=== PATIENT | female | born 1965 | race Caucasian/White ===

== ENCOUNTER 2022-02-27 13:39 | Outpatient (CLI) | payer BC, SELFPAY ==
[2022-02-27 11:39] LABS: Albumin* 4.6 g/dL (3.3-5.0)
[2022-02-27 11:40] LABS: Chloride* 102 mmol/L (96-114); Potassium* 5.6 mmol/L (3.6-5.1); Sodium* 139 mmol/L (135-149)
[2022-02-27 11:42] LABS: Aspartate Amino Transferase* 55 U/L (12-35); Bilirubin Total* 0.6 mg/dL (0.1-1.5); Carbon Dioxide* 29 mmol/L (20-32); Cholesterol* 211 mg/dL (90-199); Creatinine* 0.6 mg/dL (0.5-1.5); Estimated Glomerular Filt Rate 105 ml/min
[2022-02-27 11:43] LABS: Alanine Aminotransferase* 46 U/L (4-35); Alkaline Phosphatase* 102 U/L (40-150); Blood Urea Nitrogen* 14 mg/dL (7-30); Calcium* 9.4 mg/dL (8.4-10.6); Glucose* 95 mg/dL (60-115); Triglycerides* 154 mg/dL (40-149)
[2022-02-27 11:56] LABS: HDL Cholesterol* 123 mg/dL (>=50); LDL Cholesterol Calculated 57 mg/dL (<100)
== END 2022-02-27 13:40 | disposition home or self-care (01) ==
PROVIDERS: PCP Internal Medicine; Visit Provider Internal Medicine
DX: E78.1 Pure hyperglyceridemia (principal)
CPT/HCPCS: 80053; 80061

== ENCOUNTER 2022-08-29 08:15 | Outpatient (CLI) | payer BC, SELFPAY | END 2022-08-29 08:16 | disposition home or self-care (01) | LOC: NFLDREF 09-06 11:52 | PROVIDERS: PCP Internal Medicine; Referring Provider Internal Medicine; Visit Provider Internal Medicine | DX: E78.1 Pure hyperglyceridemia (principal); F10.20 Alcohol dependence, uncomplicated; Z13.9 Encounter for screening, unspecified; W19.XXXA Unspecified fall, initial encounter | CPT/HCPCS: 80053 ==

== ENCOUNTER 2023-01-11 12:53 | Outpatient (RCR) | payer BC, SELFPAY | END 2023-02-25 10:04 | disposition home or self-care (01) | PROVIDERS: PCP Internal Medicine; Visit Provider Orthopaedic Surgery | DX: M75.00 Adhesive capsulitis of unspecified shoulder (principal); Z51.89 Encounter for other specified aftercare | CPT/HCPCS: 97110; 97161 ==

== ENCOUNTER 2023-01-22 09:02 | Outpatient (CLI) | payer BC, SELFPAY ==
--- NOTE | 2023-01-22 09:15 | CRLHL7_ITS ---
For Patients: As a result of the Century Cures Act, medical imaging exams and procedure reports are released immediately into your electronic medical record. You may view this report before your referring provider. If you have questions, please contact your health care provider. BILATERAL SCREENING MAMMOGRAM WITH COMPUTER-AIDED DETECTION AND TOMOSYNTHESIS TECHNIQUE: CC and MLO views were obtained. These mammographic images have been obtained using full-field digital technique. These mammographic images were interpreted with the benefit of computer-aided detection. Breast tomosynthesis was used in this interpretation. COMPARISON FILM: 05/05/20, 08/27/18, 08/20/16. FINDINGS: The breasts are heterogeneously dense, which may obscure small masses. IMPRESSION: There is no radiographic evidence for malignancy. ASSESSMENT: BI-RADS Category 1: Negative RECOMMENDATION: Routine screening mammogram in 1 year. A lay language report of this examination will be provided to the patient. LALITO WALTON M.D. Diagnostic Radiologist [email or web address] Transcribed: 01/22/2023, 6:[address]/Dictated by: Lalito Walton MD @ 01/22/2023 12:59:00 PM (Electronically Signed)
== END 2023-01-22 09:03 | disposition home or self-care (01) ==
PROVIDERS: PCP Internal Medicine; Visit Provider Internal Medicine
DX: Z12.31 Encounter for screening mammogram for malignant neoplasm of breast (principal); R92.2 Inconclusive mammogram
CPT/HCPCS: 77063; 77067

== ENCOUNTER 2024-06-02 08:32 | Outpatient (CLI) | payer OTHER, SELFPAY ==
--- OUTSIDE RECORDS SUMMARY | 2024-06-05 04:47 | XMS_ITS | Clinical Summary ---
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 0 02/18/2015 Active valACYclovir (VALTREX) 500 mg tablet 0 03/28/2015 Active clobetasol 0.05% (TEMOVATE 0.05% OINTMENT) 0.05 % ointmentIndications :Allergic contact dermatitis due to drugs in contact with skin Mix in equal parts with mupirocin and apply 3x per day to perirectal area for one week, about 1 gm. 30 g 1 04/16/2016 Active mupirocin 2% topical (BACTROBAN OINTMENT) ointmentIndications :Allergic contact dermatitis due to drugs in contact with skin Apply topically to affected area(s) 3 times daily. Mix in equal parts with clobetasol and apply 3x per day for 7 days. 30 g 1 04/16/2016 Active albuterol HFA 90 mcg/actuation inhalerIndications: Cough Inhale 1-2 Puffs by mouth every 4 hours if needed. 1 Inhaler 2 09/24/2016 Active benzonatate (TESSALON PERLES) 100 mg capsuleIndications: Cough Take 1 capsule by mouth 3 times daily if needed for Cough. 30 capsule 2 09/27/2016 Active fluticasone (50 mcg per actuation) nasal solution (FLONASE)Indication s:Non-seasonal allergic rhinitis due to pollen inhale 1 spray into both nostrils by intranasal route 2 times daily. 3 Bottle 1 10/03/2016 Active venlafaxine (EFFEXOR) 75 mg tablet Take 1 tablet by mouth every morning. 0 12/04/2016 Active mupirocin 2% topical (BACTROBAN OINTMENT) ointmentIndications :Impetigo Apply topically to affected area(s) 3 times daily. 30 g 1 12/04/2016 Active ranitidine (ZANTAC) 150 mg tabletIndications:G astroesophageal reflux disease without esophagitis Take 1 tablet by mouth 2 times daily. 180 tablet 2 05/01/2017 Active Active Problems Problem Noted Date Diagnosed Date Colon polyp 10/30/2010 Overview (10/30/2010): Colonoscopy 09/2010 polyp repeat in [address] scan 10/27/2010 Metatarsalgia 10/14/2008 Rosacea Resolved Problems Problem Noted Date Diagnosed Date Resolved Date Coronary atherosclerosis of unspecified type of vessel, council or graft 08/04/2007 Female stress incontinence 0 08/04/2007 Immunizations Name Administration Dates Next Due AMB Influenza, IIV3 (Age >=3 years)(Flu Clinic Only) 05/02/2010,04/04/2009 Influenza, IIV3 (Age >=3 years) 05/05/2013,04/06,04/09/2006 Influenza, IIV4 03/16/2014 Td (Age >=7 Years) 06/09/1999 Tdap 10/27/2007 Family History Medical History Relation Name Comments Cancer-colon Father age 65 Diabetes Father type II, in his 60s Heart Disease Father IA--age 30s; C ABG at 65 Other Maternal Grandfather IA Cancer-breast Maternal Grandmother unknow n age Other Maternal Grandmother emphyse ma Alcohol/Drug Mother Other Mother copd Cancer-breast Paternal Aunt unknown age Relation Name Status Comments Father Alive Maternal Grandfather Maternal Grandmother Mother (Age 64) Pneumonia COPD Paternal Aunt Social History Tobacco Use Types Packs/Day Years Used Date Smoking Tobacco: Every Day Cigarettes Smokeless Tobacco: Never Tobacco Cessation:Ready to Q uit: No; Counseling Given: Yes Alcohol Use Standard Drinks/Week Comments Yes 10 (1 standard drink = 0.6 oz pu re alcohol) occasional Sex and Gender Information Value Date Recorded Sex Assigned at Not on file Gender Identity Not on file Sexual Orientation Not on file Obstetrics History Last Filed Vital Signs Vital Sign Reading Time Taken Comments Blood Pressure 131/90 12/04/2016 11:46 AM CDT Pulse 91 12/04/2016 11:46 AM CDT Temperature 36.8 C (98.2 F) 09/24/2016 8:21 AM CDT Respiratory Rate 20 01/31/2009 11:07 AM CDT Oxygen Saturation 98% 12/04/2016 11:46 AM CDT Inhaled Oxygen Concentration - - Weight 70.8 kg (156 lb) 12/04/2016 11:46 AM CDT Height 166.4 cm (5' 5.51) 03/21/2016 7:25 AM CD T Body Mass Index 25.56 03/21/2016 7:25 AM CDT Plan of Treatment Health Maintenance Due Date Last Done Comments HIV for age 15-65 1980 Hepatitis C screening for age 18-79 1983 Mammogram for age 45-75 2010 12/03/19 09, 11/26/2007, 10/23/2006 Lipids for age 45-75 07/26/2011 07/26/2006 Zoster (shingles) series for age 50+ (1 of 2) 2015 BMI (ht and wt on same day) for age 18+ 03/21/2017 03/21/2016 Depression screening for age 12+ 03/21/2017 03/21/2016 Tetanus booster 10/26/2017 10/27/2007, 06/09/1999 Colonoscopy through age 75 10/27/2020 10/27/2010, COVID-19 vaccine series (2023- season) 2024 Influenza for age 50-64 03/01/2024 03/16/20 14, 05/05/2013, 05/02/2010, Additional history exists Tdap Completed 10/27/2007 Pneumococcal series for age 6-64 Aged Out No longer eligible based on patient's age to complete this topic Procedures Procedure Name Priority Date/Time Associated Diagnosis Comments XR MAMMO BILAT SCREEN FFDM ([place]) Routine 12/02/2008 11:32 AM CDT Other Screening Mammogram LIPID PANEL Timed 07/26/2006 4:36 PM TRANSPORT MANAGER from Last 3 Months or Most Recently Relevant to Health Maintenance Results * XR MAMMO BILAT SCREEN FFDM (12/02/2008 11:32 AM CDT) MAMMOGRAM ACR 2 Benign Finding Anatomical Region Laterality Modality BREASTS, Breast Left, Breast Right Bilateral Mammography 12/02/2008 11:3 2 AM CDT Narrative 12/07/2008 10:33 AM CDT Benign findings noted on mammogram. For complete description of the mammographic examination, please reference scanned document within [facility]. We are mailing a results letter to the patient. ACR 2 Benign Finding Procedure Note Sebastian Gonzalez - 12/08/2008 Benign findings noted on mammogram. For complete description of themammographic examination, please reference scanned document [facility]. We are mailing a results letter to the patient. ACR 2 Benign Finding Anup Ledezma MD MAMMO * LIPID PANEL (07/26/2006 4:36 PM TRANSPORT MANAGER) CHOLESTEROL,TOTAL 158 110 - 199 mg/dL [facility] TRIGLYCERIDES 70 <150 mg/dL [facility] HDL CHOLESTEROL 68 >40 mg/dL [facility] CHOL/HDL RATIO 2.[address] [facility] LDL CHOLESTEROL 76 <131 mg/dL [facility] PATIENT STATUS Fasting [facility] 07/26/2006 4:36 PM TRANSPORT MANAGER 07/26/2006 4:36 PM TRANSPORT MANAGER Anup Ledezma MD CHEMISTRY [facility] [address] [place] [address] from Last 3 Months or Most Recently Relevant to Health Maintenance Care Teams Oil Heater Operator Relationship Specialty Start Date End Date Bebeto Russ MD [address] [place] [address] PCP - General 10/27/10
== END 2024-06-02 08:33 | disposition home or self-care (01) ==
LOC: NFLDREF 06-05 04:46
PROVIDERS: PCP Internal Medicine; Referring Provider Internal Medicine; Visit Provider Internal Medicine
DX: R05.9 Cough, unspecified (principal); E78.5 Hyperlipidemia, unspecified; B00.9 Herpesviral infection, unspecified; F10.20 Alcohol dependence, uncomplicated; K21.9 Gastro-esophageal reflux disease without esophagitis; L71.9 Rosacea, unspecified; E78.1 Pure hyperglyceridemia; F32.A Depression, unspecified
CPT/HCPCS: 80053; 80061

== ENCOUNTER 2024-08-27 11:16 | Outpatient (CLI) | payer OTHER, SELFPAY | END 2024-08-27 11:17 | disposition home or self-care (01) | LOC: MAMMO 11:17 | PROVIDERS: PCP Internal Medicine; Visit Provider Internal Medicine | DX: Z12.31 Encounter for screening mammogram for malignant neoplasm of breast (principal); R92.333 Mammographic heterogeneous density, bilateral breasts | CPT/HCPCS: 77063; 77067 ==

== ENCOUNTER 2025-05-06 14:40 | Outpatient (CLI) | payer OTHER, SELFPAY ==
--- NOTE | 2025-05-06 15:00 | CRLHL7_ITS ---
For Patients: As a result of the Century Cures Act, medical imaging exams and procedure reports are released immediately into your electronic medical record. You may view this report before your referring provider. If you have questions, please contact your health care provider. INDICATION: Lung nodule. TECHNIQUE: CT chest without contrast. COMPARISON: Chest x-ray 05/04/2025 FINDINGS: Lungs and pleura: Irregular mass measuring 2 x 2.7 by 3.1 centimeters peripheral right lower lobe suspicious for malignancy. Few scattered granulomas. A 3 millimeter nodule peripheral left lower lobe . Few additional small nodules. Heart and vasculature: Heart size is normal. Thoracic aorta and pulmonary artery are normal in caliber. Lymph nodes/mediastinum: No mediastinal, hilar, or axillary adenopathy. Chest wall: No masses. Upper abdomen: No significant findings. Bones: Unremarkable for age. IMPRESSION: 1. Irregular right lower lobe mass measuring 2 x 2.7 x 3.1 centimeters is suspicious for malignancy. Would recommend pulmonary consultation. Please note that all CT scans at this facility use dose modulation, iterative reconstruction, and/or weight-based dosing when appropriate to reduce radiation dose to as low as reasonably achievable. Dictated by Gisel Adair MD @ 05/07/2025 5:01:45 AM (Electronically Signed)
== END 2025-05-06 14:41 | disposition home or self-care (01) ==
LOC: CT 14:41
PROVIDERS: PCP Internal Medicine; Visit Provider Physician Assistant Surgical
DX: R91.8 Other nonspecific abnormal finding of lung field (principal); R05.2 Subacute cough
CPT/HCPCS: 71250

== ENCOUNTER 2025-05-13 10:17 | Outpatient (CLI) | payer OTHER, SELFPAY | END 2025-05-13 10:18 | disposition home or self-care (01) | PROVIDERS: PCP Internal Medicine; Visit Provider Internal Medicine | DX: E78.1 Pure hyperglyceridemia (principal) | CPT/HCPCS: 80053; 80061 ==

== ENCOUNTER 2025-05-25 08:40 | Outpatient (CLI) | payer OTHER, SELFPAY ==
--- NOTE | 2025-05-25 09:00 | CRLHL7_ITS ---
For Patients: As a result of the Century Cures Act, medical imaging exams and procedure reports are released immediately into your electronic medical record. You may view this report before your referring provider. If you have questions, please contact your health care provider. EXAM: PET-CT SKULL BASE TO THIGH CLINICAL INFORMATION: 59-yo Female with right lower lobe mass on recent cross-sectional imaging of the chest. History of tobacco abuse. Patient is referred for further characterization. TECHNIQUE: Radiopharmaceutical: 15.08 mCi of 18F-FDG Intravenous injection site: Rac Uptake time: 59 minutes Blood glucose level at the time of injection: 88 mg/dL Field of view: Skull base to mid-thighs CT protocol: The low-dose, free-breathing, noncontrast CT performed as part of this study is designed for the purposes of attenuation correction and lesion localization, and it is neither sufficient, nor it should be substituted for diagnostic purposes. COMPARISON: CT chest 05/06/2025 FINDINGS: Physiologic background liver standardized uptake value (SUV mean and SUV max) reported for comparison between PET studies: 2.4 and 3.3. Visualized head and neck: No abnormal uptake in the visualized brain or posterior fossa. Asymmetric uptake within bilateral nonenlarged palatine tonsils. For example: Left palatine tonsil SUV max 8.0. Right palatine tonsil SUV max 3.7. Attention on exam. Head and neck lymph nodes: Variable uptake within nonenlarged mid and upper cervical chain lymph nodes is nonspecific, probably reactive/inflammatory. For example: Left level 2 lymph node, 0.7 cm short axis, SUV max 2.2. Lungs: Respiratory motion artifact. Scattered upper lobe predominant emphysematous changes. Minor biapical scarring. Avid irregular mass lesion posterolateral right lower lobe with lobular margins is mildly avid, 2.8 x 1.8 cm, SUV max 1.9 (series 202, image 105). Comparison CT chest, 2.8 cm (series 2, image 55). Additional bilateral micro nodules without uptake too small to characterize. No consolidation or localized airspace process. Pleura and pericardium: No significant pleural or pericardial effusion. Thoracic lymph nodes: No enlarged or hypermetabolic mediastinal, hilar or left axillary lymph nodes. Nonenlarged right axillary lymph node demonstrates intense uptake, 0.3 cm short axis, SUV max 36.4 (fused image 94). Nonspecific though most likely nonpathologic and related dose extravasation at the right upper extremity injection site. Other chest findings: Physiologic myocardial uptake. Scattered coronary vascular calcifications. Hepatobiliary: Heterogeneous background hepatic activity. No measurable tracer avid liver lesions. Linear areas of uptake within the central and posterior left lobe demonstrate no obvious noncontrast CT abnormality. Possibly vascular activity or artifact. Attention on follow-up. Cholelithiasis. Spleen: No abnormal uptake. No splenomegaly. Pancreas: No abnormal uptake. No adjacent inflammatory changes. Adrenal glands: Similar configuration. No abnormal uptake. Kidneys and bladder: No obstruction or abnormal renal uptake. 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 Nondilated ureters. Partially distended bladder. Bowel and peritoneum: Partially distended gastric lumen. No suspicious proximal small bowel uptake. Air-filled duodenal diverticulum partial distal small bowel resection with patent anastomosis. Areas of uptake within decompressed distal small bowel loops and the terminal ileum demonstrate no obvious noncontrast CT abnormality. Diffuse diverticulosis of the sigmoid colon. No CT findings of diverticulitis. Pelvic organs: Prior hysterectomy. No abnormal uptake. Abdominopelvic lymph nodes: No enlarged or hypermetabolic abdominopelvic lymph nodes. Musculoskeletal, soft tissues, skin: No aggressive, lytic or expansile osseous lesions with uptake. Heterogeneous marrow activity in the spine and pelvis with no definite noncontrast CT abnormality. Degenerative type uptake within the bilateral shoulders, bilateral sternoclavicular joints and spine. -localized soft tissue uptake in the region of the right antecubital fossa is most consistent with extravasation of tracer at the injection site. Other: Scattered diffuse aortoiliac vascular calcifications. IMPRESSION: 1. Avid irregular mass lesion in the posterolateral right lower lobe demonstrates mild uptake. Overall imaging findings and uptake are considered indeterminate though suspicious. Malignancy not excluded. 2. No enlarged or hypermetabolic low cervical, mediastinal or left axillary lymph nodes. Avid nonenlarged right axillary lymph node with intense uptake is favored nonpathologic and most like due to right upper extremity dose extravasation at the injection site. Attention on follow-up. 3. Asymmetric uptake within nonenlarged bilateral palatine tonsils is more intense on the left. Attention on exam. 4. No abnormal uptake in the left lung, solid organs of the upper abdomen or abdominopelvic lymph node. No aggressive tracer avid osseous lesions. 5. Areas of uptake within decompressed distal small bowel loops and the terminal ileum demonstrate no gross abnormality on noncontrast CT. Probably reactive or physiologic. 6. Dose extravasation at the right antecubital injection site noted. Findings could affect the sensitivity and reproducibility of SUV max on subsequent exams. Biodistribution of the radiotracer is otherwise physiologic. 7. Other nonacute findings as detailed in the body of the report. Dictated by Negro Roa MD @ 05/25/2025 11:49:04 PM (Electronically Signed)
== END 2025-05-25 08:41 | disposition home or self-care (01) ==
LOC: RAD 08:41
PROVIDERS: PCP Internal Medicine; Visit Provider Internal Medicine
DX: R91.1 Solitary pulmonary nodule (principal)
CPT/HCPCS: 78815; A9552